=== PATIENT | male | born 1960 | race Caucasian/White ===

== ENCOUNTER 2020-05-05 15:43 | Emergency (ER) | payer OTHER ==
[~2020-05-05] VITALS: Ht 188 cm; Wt 99.8 kg
[2020-05-05 15:55] VITALS: Ht 188 cm; Wt 99.8 kg
[2020-05-05 16:38] LABS: BASOPHIL % 0.9 % (0-2); PLATELET COUNT 231 x10^3mcL (130-400); RED CELL DISTRIBUTION WIDTH 13.4 % (11.5-14.5)
[2020-05-05 16:48] LABS: CALCIUM 8.7 mg/dL (8.5-10.1); CARBON DIOXIDE 26.3 mmol/L (21-32); CHLORIDE SERUM 103 mmol/L (98-107); CREATININE SERUM 1.2 mg/dL (0.7-1.3); GFR1 > 60 mL/min; GLUCOSE SERUM 380 mg/dL (74-106); POTASSIUM SERUM 3.8 mmol/L (3.5-5.1); SODIUM SERUM 138 mmol/L (136-145)
[2020-05-05 18:33] VITALS: BP 134/78
== END 2020-05-05 18:33 | disposition home or self-care (01) ==
LOC: ED 15:43
PROVIDERS: Student in an Organized Health Care Education/Training Program
DX: E11.65 Type 2 diabetes mellitus with hyperglycemia (principal); I10 Essential (primary) hypertension; E78.00 Pure hypercholesterolemia, unspecified; E11.40 Type 2 diabetes mellitus with diabetic neuropathy, unspecified; Z76.0 Encounter for issue of repeat prescription; Z02.79 Encounter for issue of other medical certificate
CPT/HCPCS: 82962; J1815; J7030